=== PATIENT | female | born 1985 | race Caucasian/White ===

== ENCOUNTER 2020-12-01 15:47 | Emergency (ER) | payer SELFPAY ==
--- NOTE | ~2020-12-01 | CT_ITS ---
EXAMINATION: CT abdomen pelvis wo con DATE: 12/01/2020 17:07 INDICATION: Left upper quadrant abdominal pain. TECHNIQUE: Computed tomography (CT) of the abdomen and pelvis was performed without intravenous contr ast. Automated exposure control and iterative reconstruction technique were employed. The dose-length product was 441.56 mGy-cm. COMPARISON: CT pelvis 01/23/2012 FINDINGS: The visualized portions of the lung bases are clear without pneumonia or pleural effusion. The heart size is normal. No pericardial effusion. The liver, gallbladder, spleen, pancreas, adrenal glands, and kidneys are normal. There is no urolithiasis. There are no dilated loops of bowel. The ap pendix is normal. There are no pathologically enlarged lymph nodes. There is no free intraperitoneal fluid. The bones are unremarkable. IMPRESSION: 1. No etiology for the patient's symptoms. Reviewed, dictated and finalized at location A.
[2020-12-01 16:13] VITALS: BP 123/61; PULSE 94; RESP 20; TEMP 37.1; O2SAT 99
[2020-12-01] MEDS: ONDANSETRON INJ 4 MG/2 ML VIAL IV PUSH (16:35)
[2020-12-01] MEDS: KETOROLAC 30 MG/ML VIAL (*BKC) IV PUSH (16:35)
[2020-12-01 16:36] LABS: Add Urine Microscopic? YES; Appearance Urine Clear (Clear); Basophils Absolute Auto 0.06 K/mm3 (0.00-0.10); Basophils Percent Auto 0.6 % (0.0-1.0); Bilirubin Urine Negative (Negative); Blood Urine Negative (Negative); Color Urine Light Yellow (Yellow); Eosinophils Absolute Auto 0.15 K/mm3 (0.02-0.50); Eosinophils Percent Auto 1.5 % (1.0-6.0); Glucose Urine UA Negative (Negative); Hematocrit 39.4 % (35.0-49.0); Immature Granulocyte Absolute 0.04 K/mm3 (0.00-0.00); Immature Granulocyte Percent A 0.4 % (0.0-0.0); Ketones Urine Trace (Negative); Leukocyte Esterase Ur Negative (Negative); Lymphocytes Absolute Auto 2.79 K/mm3 (1.10-4.50); Lymphocytes Percent Auto 27.7 % (18.0-42.0); Mean Corpuscular Hemoglobin 30.6 pg (27.0-31.0); Mean Corpuscular Volume 92.7 fL (78.0-102.0); Monocytes Absolute Auto 0.59 K/mm3 (0.10-0.90); Monocytes Percent Auto 5.8 % (2.0-11.0); Neutrophils Absolute Auto 6.5 K/mm3 (1.7-7.2); Nitrate Urine Negative (Negative); Platelet Count Result 406 K/mm3 (150-420); Protein Urine Negative (Negative); Red Blood Count 4.25 M/mm3 (4.20-5.40); Red Cell Distribution Width 12.6 % (11.6-14.4); Urobilinogen Urine 0.2 mg/dL (0.2-1.0); White Blood Count 10.1 K/mm3 (4.8-10.8)
[2020-12-01] MEDS: SODIUM CHLORIDE 0.9% IV 1,000 ML 999 ML IV CONT (16:37)
[2020-12-01 16:45] LABS: RBC Urine 0-2 /hpf (0-2); WBC Urine 0-3 /hpf (0-3)
[2020-12-01 16:46] LABS: Bacteria Urine Trace /hpf; Squamous Epithelial Cell Urine Rare /hpf (Few)
[2020-12-01 16:47] LABS: Pregnancy On Board Control Positive; Urine Pregnancy Test Negative
[2020-12-01 16:51] LABS: Alanine Aminotransferase 18 U/L (14-59); Alkaline Phosphatase 49 U/L (46-116); Anion Gap 10 mmol/L (8-16); Aspartate Amino Transferase < 10 U/L (15-37); Bilirubin,Total 0.1 mg/dL (0.00-1.00); Blood Urea Nitrogen 18 mg/dL (7-18); Calcium 8.8 mg/dL (8.5-10.1); Carbon Dioxide 26 mmol/L (21-32); Chloride 108 mmol/L (98-108); Estimated CRCL calculation 82 ml/min; Estimated Glomerular Filt Rate > 60; Glucose 106 mg/dL (70-99); Lipase 178 U/L (73-393); Osmolality Calculated 299 mOsm/kg (285-295); Potassium 4.1 mmol/L (3.5-5.1); Sodium 144 mmol/L (136-145); Total Protein 7.2 g/dL (6.4-8.2)
--- NOTE | 2020-12-01 17:25 | ED.ABDPAIN ---
HPI - Abdominal Pain General Chief Complaint: Abdominal Pain Stated Complaint: stomach and back pain Source: patient Mode of arrival: ambulatory Limitations: no limitations History of Present Illness HPI narrative: this is 34-year-old female that presents with abdominal pain for last 2 days epigastric with some no radiation of her pain does have some chronic back pain with some nausea with no vomiting no dysuria no hematuria no diarrhea constipation no history of kidney are gallstones. The pain is rated about a 5/10 with some nausea and no vomiting. MD elicited complaint: abdominal pain Pertinent past history: none Onset (ago): day(s) Pain Consistency: intermittent Location: none Severity: moderate Quality: aching Radiation: epigastric Migration to: no migration Exacerbating factors: nothing Relieving factors: nothing Related Data Allergies Allergy/AdvReac Type Severity Reaction Status Date / Time No Known Allergies Allergy Mild Unverified 10/26/06 09:58 Review of Systems Review of Systems: All systems reviewed & are unremarkable except as noted in HPI and below PMFSH Past Medical History Medical History Patient denies medical problems Social History Social History Smoking status: Former smoker Alcohol intake: never Substance use: never Gender identity (if verbalized by the patient): Female Spiritual care concerns: No Exam Const: General: no acute distress and alert Orientation/consciousness: patient oriented x3 Limitations: altered mental status HENMT: Head: normal to inspection Eyes: Conjunctivae: conjunctivae normal Pupils: Equal, round and reactive pupils present Neck: Neck: normal visual inspection, no lymphadenopathy and no meningeal signs Chest: Chest palpation & inspection: normal inspection of the chest Resp: Effort & Inspection: normal respiratory effort Auscultation: clear to auscultation bilaterally Cardio: Rate: regular rate Rhythm: regular rhythm GI: GI Palp: Yes Soft to palpation and Yes Tenderness to palpation present (GI) : General: Yes no CVA tenderness Urinary Catheter: Urinary Catheter: patent and draining Skin: General skin exam: normal color Rashes: no rashes Neuro: General: patient oriented x3 and moves all extremities Extrem: General: normal to inspection and no pedal edema Psych: Mental Status: mental status grossly normal Course Course Emergency Course: pain has improved with IM Toradol, reviewed CT scan and labs with patient, advised to take medicine as prescribed and follow-up primary care physician. Vital Signs Vital signs: Vital Signs Temperature 37.1 C 12/01/20 16:13 Pulse Rate 94 12/01/20 16:13 Respiratory Rate 20 12/01/20 16:13 Blood Pressure 123/61 12/01/20 16:13 Pulse Oximetry 99 12/01/20 16:13 Temperature 37.1 C 12/01/20 16:13 Pulse Rate 94 12/01/20 16:13 Respiratory Rate 20 12/01/20 16:13 Blood Pressure 123/61 12/01/20 16:13 Pulse Oximetry 99 12/01/20 16:13 MDM - Abdominal Pain Lab Data Result diagrams: 12/01/20 16:25 12/01/20 16:25 Labs: Lab Results 12/01/20 12/01/20 12/01/20 Range/Units 16:25 16:25 16:25 WBC 10.1 (4.8-10.8) K/mm3 RBC 4.25 (4.20-5.40) M/mm3 Hgb 13.0 (12.0-15.0) g/dL Hct 39.4 (35.0-49.0) % MCV 92.7 (78.0-102.0) fL MCH 30.6 (27.0-31.0) pg MCHC 33.0 (32.0-36.0) g/dL RDW 12.6 (11.6-14.4) % Plt Count 406 (150-420) K/mm3 MPV 9.0 L (9.2-11.8) fl Immature Gran % (Auto) 0.4 H (0.0-0.0) % Neut % (Auto) 64.0 (50.0-70.0) % Lymph % (Auto) 27.7 (18.0-42.0) % [place] % (Auto) 5.8 (2.0-11.0) % Eos % (Auto) 1.5 (1.0-6.0) % Baso % (Auto) 0.6 (0.0-1.0) % Lymph # (Auto) 2.79 (1.10-4.50) K/mm3 [place] # (Auto) 0.59 (0.10-0.90) K/mm3 Eos # (Auto) 0.15 (0.02
[2020-12-01 17:33] LABS: Lactic Acid Reflex 0.9 mmol/L (0.4-2.0)
[2020-12-01 17:57] VITALS: BP 130/74; PULSE 87; RESP 20; TEMP 36.6; O2SAT 99
== END 2020-12-01 18:00 | disposition home or self-care (01) ==
PROVIDERS: Emergency Provider Emergency Medicine
DX: R10.13 Epigastric pain (principal)
CPT/HCPCS: 36415; 74176; 80053; 81001; 81025; 83605; 83690; 85025; 96361; 96374; 96375; 99283; 99284; J1885; J2405; J7030

== ENCOUNTER 2021-08-05 10:43 | Emergency (ER) | payer OTHER, SELFPAY ==
--- NOTE | ~2021-08-05 | CT_ITS ---
EXAMINATION: CT abdomen pelvis wo con DATE: 08/05/2021 11:56 INDICATION: Mid abdominal pain for 2 weeks TECHNIQUE: Computed tomography (CT) of the abdomen and pelvis was performed without intravenous contr ast. Automated exposure control and iterative reconstruction technique were employed. Exam dose: 319 .25 mGy-cm total exam DLP. COMPARISON: 12/01/2020 CT abdomen pelvis FINDINGS: The lung bases are clear. Normal heart size. No pericardial or pleural effusion. The liver, gallbladder, bile ducts, spleen, pancreas, pancreatic duct, and adrenal glands and kidneys are unremarkable. No urinary tract calculus or hydroureteronephrosis is detected. The urinary bladde r, uterus and adnexal areas are unremarkable. Normal caliber of the abdominal aorta. No intraperitoneal or retroperitoneal or pelvic mass lesion or adenopathy or ascites. Normal appendix. No bowel obstruction, bowel wall thickening, pneumatosis or intraperitoneal free air . Very small fat-containing umbilical hernia. Included skeletal structures are unremarkable. IMPRESSION: No significant abnormality Reviewed, dictated and finalized at Location A. Reviewed, dictated and finalized at location A. IMPRESSION: No significant abnormality
[2021-08-05 10:55] VITALS: BP 123/87; PULSE 79; RESP 16; TEMP 36.5; O2SAT 99
[2021-08-05] MEDS: MORPHINE SULFATE (*CRX) 2 MG/ML INJ IV PUSH (11:18)
[2021-08-05] MEDS: SODIUM CHLORIDE 0.9% IV 1,000 ML 999 ML IV CONT (11:18)
--- NOTE | 2021-08-05 11:18 | ED.ABDPAIN ---
HPI - Abdominal Pain General Chief Complaint: Vaginal Bleeding Stated Complaint: abd pain, back pain, vaginal bleeding, dizziness Source: patient Mode of arrival: ambulatory Limitations: no limitations History of Present Illness HPI narrative: this is a 35-year-old female that presents with some lower abdominal crampy abdominal pain with for the past 10 days has been having usually have a menstrual periods currently on implantable control as crampy abdominal pain with flank pain with no dysuria no fever chills no nausea vomiting no diarrhea constipation. MD elicited complaint: abdominal pain and flank pain Pertinent past history: other ( heavy uterine bleeding) Onset (ago): day(s) Pain Consistency: intermittent Severity: moderate Quality: cramping Related Data Home Medications Medication Instructions Recorded Confirmed fluoxetine 40 mg PO DAILY 08/05/21 08/05/21 meloxicam 15 mg PO DAILY 08/05/21 08/05/21 Allergies Allergy/AdvReac Type Severity Reaction Status Date / Time No Known Allergies Allergy Mild Unverified 08/05/21 10:59 Review of Systems Review of Systems: All systems reviewed & are unremarkable except as noted in HPI and below PMFSH Past Medical History Medical History Patient denies medical problems Social History Social History Smoking status: Former smoker Alcohol intake: never Substance use: never Gender identity (if verbalized by the patient): Female Spiritual care concerns: No Exam Const: General: no acute distress and alert Orientation/consciousness: patient oriented x3 HENMT: Head: normal to inspection Eyes: Conjunctivae: conjunctivae normal Pupils: Equal, round and reactive pupils present Neck: Neck: normal visual inspection Chest: Chest palpation & inspection: normal inspection of the chest Resp: Effort & Inspection: normal respiratory effort Auscultation: clear to auscultation bilaterally Cardio: Rate: regular rate Rhythm: regular rhythm GI: GI Palp: Yes Soft to palpation and Yes Tenderness to palpation present (GI) ( Suprapubic area and bilateral flanks) : General: Yes CVA tenderness Female genitals images: 1. external pelvic exam did not show any clots are no current bleeding, there was a small scant amount of blood. Urinary Catheter: Urinary Catheter: patent and draining and urine red Back/Spine/Pelvis: Back: CVA tenderness Skin: General skin exam: normal color Rashes: no rashes Neuro: General: patient oriented x3 and moves all extremities Extrem: General: normal to inspection and no pedal edema Psych: Mental Status: mental status grossly normal Affect: normal affect Course Course Emergency Course: IV started on patient, patient having abdominal pain and given 2mg IV morphine, CT scan the abdomen pelvis without contrast, patient had blood work performed and reviewed. Vital Signs Vital signs: Vital Signs Temperature 36.5 C 08/05/21 10:55 Pulse Rate 79 08/05/21 10:55 Respiratory Rate 16 08/05/21 10:55 Blood Pressure 123/87 08/05/21 10:55 Pulse Oximetry 99 08/05/21 10:55 Temperature 36.5 C 08/05/21 10:55 Pulse Rate 79 08/05/21 10:55 Respiratory Rate 16 08/05/21 10:55 Blood Pressure 123/87 08/05/21 10:55 Pulse Oximetry 99 08/05/21 10:55 Critical Care Time Critical Care Time Critical Care Time: No Discharge Plan Discharge Clinical Impression: Dysfunctional uterine bleeding Patient Disposition: Home, Self-Care Condition: Stable Instructions: Antibiotic Form, Abnormal (Dysfunctional) Uterine Bleeding (ED) Additional Instructions: Take medicine as prescribed and follow-up with primary care physician/ licensed life and health agent as soon as possible for further evaluation and treatment. Prescriptions: New medroxyprogesterone 2.5 mg tablet 2.5 mg PO DAILY Qty: 5 RF: 0
[2021-08-05 11:30] LABS: Basophils Absolute Auto 0.05 K/mm3 (0.00-0.10); Basophils Percent Auto 0.4 % (0.0-1.0); Eosinophils Absolute Auto 0.04 K/mm3 (0.02-0.50); Eosinophils Percent Auto 0.3 % (1.0-6.0); Hemoglobin 13.2 g/dL (12.0-15.0); Immature Granulocyte Absolute 0.05 K/mm3 (0.00-0.00); Immature Granulocyte Percent A 0.4 % (0.0-0.0); Lymphocytes Absolute Auto 1.44 K/mm3 (1.10-4.50); Mean Corpuscular Volume 93.9 fL (78.0-102.0); Mean Platelet Volume 8.7 fl (9.2-11.8); Monocytes Absolute Auto 0.54 K/mm3 (0.10-0.90); Monocytes Percent Auto 4.1 % (2.0-11.0); Neutrophils Percent Auto 83.8 % (50.0-70.0); Platelet Count Result 404 K/mm3 (150-420); Red Blood Count 4.26 M/mm3 (4.20-5.40); Red Cell Distribution Width 13.3 % (11.6-14.4); White Blood Count 13.1 K/mm3 (4.8-10.8)
[2021-08-05 11:30] LABS: Appearance Urine Slightly Cloudy (Clear); Bilirubin Urine Negative (Negative); Blood Urine 3+ (Negative); Glucose Urine UA Negative (Negative); Ketones Urine Negative (Negative); Leukocyte Esterase Ur Negative (Negative); Nitrate Urine Negative (Negative); Protein Urine 1+ (Negative); Specific Grav Ur 1.015 (1.010-1.020); Urobilinogen Urine 0.2 mg/dL (0.2-1.0); pH Urine 8.5 (5.0-8.0)
[2021-08-05 11:36] LABS: Add Urine Microscopic? YES; Bacteria Urine Trace /hpf; Color Urine Light Red (Yellow); RBC Urine 21-50 /hpf (0-2); Squamous Epithelial Cell Urine Few /hpf (Few); WBC Urine 0-3 /hpf (0-3)
[2021-08-05 11:37] LABS: Pregnancy On Board Control Positive; Urine Pregnancy Test Negative
[2021-08-05 11:44] LABS: Alanine Aminotransferase 12 U/L (14-59); Albumin Level 3.7 g/dL (3.4-5.0); Alkaline Phosphatase 45 U/L (46-116); Anion Gap 8 mmol/L (8-16); Aspartate Amino Transferase 14 U/L (15-37); Bilirubin,Total 0.4 mg/dL (0.00-1.00); Blood Urea Nitrogen 14 mg/dL (7-18); Calcium 8.6 mg/dL (8.5-10.1); Carbon Dioxide 23 mmol/L (21-32); Chloride 108 mmol/L (98-108); Estimated Glomerular Filt Rate > 60; Glucose 93 mg/dL (70-99); Osmolality Calculated 288 mOsm/kg (285-295); Potassium 3.6 mmol/L (3.5-5.1); Sodium 139 mmol/L (136-145); Total Protein 6.9 g/dL (6.4-8.2)
[2021-08-05 11:45] LABS: Partial Thromboplastin Time 28.1 SEC (23.90-30.70)
[2021-08-05 12:19] VITALS: BP 119/64; PULSE 63; RESP 16; TEMP 36.9; O2SAT 100
== END 2021-08-05 12:24 | disposition home or self-care (01) ==
PROVIDERS: Emergency Provider Emergency Medicine; PCP Family Medicine
DX: N93.8 Other specified abnormal uterine and vaginal bleeding (principal)
CPT/HCPCS: 36415; 74176; 80053; 81001; 81025; 85025; 85610; 85730; 96361; 96374; 99284; J2270; J7030

== ENCOUNTER 2021-10-14 09:23 | Outpatient (CLI) | payer OTHER, SELFPAY ==
--- NOTE | ~2021-10-14 | MR_ITS ---
EXAMINATION: MR thoracic spine wo con DATE: 10/14/2021 10:39 INDICATION: Mid to upper back pain. TECHNIQUE: Magnetic resonance imaging (MRI) of the thoracic spine was performed without intravenous c ontrast. Sagittal localizer T1-weighted FSE of the cervical spine was obtained. Thoracic spine sequen mary included sagittal T2-weighted FSE, sagittal T1-weighted FSE, sagittal T2-weighted FS FSE, and axi al T2-weighted FSE. COMPARISON: None FINDINGS: There is 5 degrees dextrocurvature of thoracic spine. There are Schmorl's nodes at T10-T11 and T11-T12. There is mildly decreased disc height at T2-T3. There is multilevel facet joint osteoart hritis, moderate to severe bilaterally from T2-T3 through T4-T5. On the left, there is mild neural fo raminal stenosis at T2-T3. The discs do not extend beyond the endplate margins. The spinal cord signa l intensity is normal. The conus medullaris is at T12-L1. IMPRESSION: 1. Mild thoracic spondylosis. Reviewed, dictated and finalized at location A.
--- NOTE | ~2021-10-14 | MR_ITS ---
EXAMINATION: MR cervical spine wo con DATE: 10/14/2021 10:39 INDICATION: Mid to upper back pain. TECHNIQUE: Magnetic resonance imaging (MRI) of the cervical spine was performed without intravenous c ontrast. Sequences included sagittal T2-weighted FSE, sagittal T2-weighted FS FSE, sagittal T1-weight ed FSE, axial MERGE, and axial T2-weighted FSE. COMPARISON: None FINDINGS: There is kyphosis of cervical spine. There is 6 degrees dextrocurvature of cervicothoracic spine. Vertebral body heights are normal. There is mildly decreased disc height at C4-C5, C5-C6, and C6-C7. The spinal cord signal intensity is normal. The following disc levels are specifically discuss ed: C2-C3: The disc does not extend beyond the endplate margin. There is no uncovertebral joint osteoarth ritis. There is mild bilateral facet joint osteoarthritis. There is no neural foraminal stenosis. The re is no central canal stenosis. C3-C4: The disc does not extend beyond the endplate margin. There is no uncovertebral joint osteoarth ritis. There is mild left facet joint osteoarthritis. There is no neural foraminal stenosis. There is no central canal stenosis. C4-C5: The disc is bulging. There is mild left uncovertebral joint osteoarthritis. There is mild left facet joint osteoarthritis. There is no neural foraminal stenosis. There is mild central canal steno sis with ventral indentation of the spinal cord. C5-C6: The disc is bulging. There is moderate right and mild left uncovertebral joint osteoarthritis. There is mild left facet joint osteoarthritis. There is mild right neural foraminal stenosis. There is mild central canal stenosis. C6-C7: The disc is bulging. There is mild bilateral uncovertebral joint osteoarthritis. There is no f acet joint osteoarthritis. There is mild bilateral neural foraminal stenosis. There is mild central c anal stenosis. C7-T1: The disc does not extend beyond the endplate margin. There is no uncovertebral joint osteoarth ritis. There is moderate bilateral facet joint osteoarthritis. There is mild left neural foraminal st enosis. There is no central canal stenosis. IMPRESSION: 1. Mild cervical spondylosis. Reviewed, dictated and finalized at location A.
== END 2021-10-14 09:24 | disposition home or self-care (01) ==
LOC: CHSIMG 09:25
PROVIDERS: PCP Family Medicine; Visit Provider Family Medicine
DX: M54.9 Dorsalgia, unspecified (principal)
CPT/HCPCS: 72141; 72146

== ENCOUNTER 2023-04-28 10:02 | Emergency (ER) | payer OTHER, SELFPAY ==
[2023-04-28 10:06] VITALS: BP 90/71; PULSE 84; RESP 19; TEMP 36.7; O2SAT 100
[2023-04-28 10:12] LABS: Appearance Urine Clear (Clear); Bilirubin Urine Negative (Negative); Blood Urine 1+ (Negative); Glucose Urine UA Trace (Negative); Ketones Urine 1+ (Negative); Leukocyte Esterase Ur 1+ LEU/UL (Negative); Nitrate Urine Positive (Negative); Protein Urine 1+ (Negative)
--- NOTE | 2023-04-28 10:12 | PC.NURSE ---
Urine obtained and taken to lab, patient reports taking azo for the past few days to help with pain.
[2023-04-28 10:23] LABS: Add Urine Microscopic? YES; Bacteria Urine 1+ /hpf; Color Urine Orange (Yellow); Squamous Epithelial Cell Urine Occasional /hpf (Few); WBC Urine 16-20 /hpf (0-3)
[2023-04-28 10:28] LABS: Pregnancy On Board Control Positive; Urine Pregnancy Test Negative
--- NOTE | 2023-04-28 10:36 | ED.GENADULT ---
HPI - General Adult General Chief complaint: Urogenital-Female Stated complaint: Urinary problems Time Seen by Provider: 04/28/23 10:11 History of Present Illness HPI narrative: This is a 37-year-old female presenting with urinary symptoms. Symptoms been ongoing for 1 week include dysuria. She has also had some suprapubic tenderness and 1 episode nausea vomiting yesterday. No fevers at home. No chest pain difficulty breathing vaginal discharge irritation. No concern for STDs. Related Data Home Medications Medication Instructions Recorded Confirmed duloxetine 30 mg capsule,delayed 90 mg PO DAILY 04/28/23 04/28/23 release Allergies Allergy/AdvReac Type Severity Reaction Status Date / Time No Known Allergies Allergy Mild Unverified 04/28/23 10:08 [facility] Past Medical History Medical History Patient denies medical problems Social History Social History Smoking status: Former smoker Alcohol intake: never Substance use: never Living arrangements: with family Gender identity (if verbalized by the patient): Female Spiritual care concerns: No Exam Narrative: APPEARANCE: No apparent distress. Head: atraumatic. EYES: EOMI, NOSE: Atraumatic NECK: Trachea midline RESPIRATORY: No increased rate of breathing CARDIOVASCULAR: RRR, ABDOMINAL: Soft nontender no guarding or rebound. Mild tenderness the suprapubic area. No CVA tenderness bilaterally. MUSCULOSKELETAl: No obvious deformities NEURO: Alert. Moving 4/4 extremities SKIN:: Warm, dry. Normal color PSYCHIATRIC: Normal affect Course Vital Signs Vital signs: Vital Signs Temperature 98.0 F 04/28/23 10:06 Pulse Rate 84 04/28/23 10:06 Respiratory Rate 19 04/28/23 10:06 Blood Pressure 90/71 L 04/28/23 10:06 Pulse Oximetry 100 04/28/23 10:06 Oxygen Delivery Room Air 04/28/23 10:06 Temperature 98.0 F 04/28/23 10:06 Pulse Rate 84 04/28/23 10:06 Respiratory Rate 19 04/28/23 10:06 Blood Pressure 90/71 L 04/28/23 10:06 Pulse Oximetry 100 04/28/23 10:06 Oxygen Delivery Room Air 04/28/23 10:06 Medical Decision Making MDM Narrative Medical decision making narrative: -Course: 37-year-old female presenting with 1 week urinary symptoms. Urinalysis was indicative infection. no evidence of pyelonephritis. Given Keflex and Zofran emergency department. 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 -Interventions: Keflex, Zofran -Shared decision making / Disposition: discharged -RX Keflex 100 mg b.i.d. x5 days, Zofran 4 mg ODT Vital Signs Vital Signs: Vital Signs Temperature 98.0 F 04/28/23 10:06 Pulse Rate 84 04/28/23 10:06 Respiratory Rate 19 04/28/23 10:06 Blood Pressure 90/71 L 04/28/23 10:06 Pulse Oximetry 100 04/28/23 10:06 Oxygen Delivery Room Air 04/28/23 10:06 Temperature 98.0 F 04/28/23 10:06 Pulse Rate 84 04/28/23 10:06 Respiratory Rate 19 04/28/23 10:06 Blood Pressure 90/71 L 04/28/23 10:06 Pulse Oximetry 100 04/28/23 10:06 Oxygen Delivery Room Air 04/28/23 10:06 Lab Data Labs: Lab Results 04/28/23 04/28/23 Range/Units 10:07 10:09 Urine Color [place] A (Yellow) Urine Appearance Clear (Clear) Urine pH 7.0 (5.0-8.0) Ur Specific [place] 1.020 (1.010-1.020) Urine Protein 1+ H (Negative) Urine Glucose (UA) Trace H (Negative) Urine Ketones 1+ H (Negative) Ur Blood (Man) 1+ H (Negative) Urine Nitrate Positive H (Negative) Urine Bilirubin Negative (Negative) Urine Urobilinogen 2.0 H (0.2-1.0) mg/dL Leukocyte Esterase Rfl 1+ H (Negative) JOHANA/UL Urine RBC 3-5 H (0-2) /h
[2023-04-28] MEDS: ONDANSETRON HCL ODT 4 MG TABLET PO (10:42)
[2023-04-28] MEDS: CEPHALEXIN 500 MG CAPSULE PO (10:42)
[2023-04-28 10:47] VITALS: BP 90/71; PULSE 84; RESP 19; TEMP 36.6; O2SAT 100
--- NOTE | 2023-05-01 18:10 | PC.NURSE ---
05/01/23 MESSAGE LEFT FOR PT TO CALL BACK FOR PT TO FOLLOW UP WITH HER PRIMARY AFTER FINISHING ANTIBIOTIC
--- NOTE | 2023-05-02 08:37 | PC.NURSE ---
05/02/23 was able to reach pt today and discussed finishing the antibiotic and then following up with her primary doctor to have repeat UA
== END 2023-04-28 10:47 | disposition home or self-care (01) ==
PROVIDERS: Emergency Provider Emergency Medicine
DX: N39.0 Urinary tract infection, site not specified (principal); Z79.899 Other long term (current) drug therapy; Z87.891 Personal history of nicotine dependence
CPT/HCPCS: 81001; 81025; 87077; 87086; 87088; 87186; 99283; A9270

== ENCOUNTER 2023-08-12 10:24 | Outpatient (CLI) | payer OTHER, SELFPAY | END 2023-08-12 10:25 | disposition home or self-care (01) | PROVIDERS: Visit Provider Obstetrics & Gynecology | DX: Z01.818 Encounter for other preprocedural examination (principal); N92.0 Excessive and frequent menstruation with regular cycle | CPT/HCPCS: 36415; 86850; 86900; 86901 ==

== ENCOUNTER 2023-08-14 01:00 | Day surgery (SDC) | payer OTHER, SELFPAY ==
[2023-08-06 16:13] VITALS: BMI 22.3
--- NOTE | 2023-08-06 18:14 | PC.NURSE ---
Report to the Outpatient Waiting Room, entrance under the green pavilion located off [facility], at 0800 on 08-14-23. Planned Procedure Time: 1000. Time changes happen often and if your time is changed the preop area will call you the afternoon before. - You and your visitor will be asked to self-screen and do not enter if you have any COVID symptoms. - A mask is optional within the hospital at this time. Patients may have clear liquids (water, carbonated beverages, clear teas, apple juice) until 3 hours prior to surgery with a maximum of 20 ounces. 0700 - No food from midnight until time of surgery - Infants may have breast milk until 4 hours before surgery, infant formula 6 hours prior to surgery. - Children will be allowed to drink immediately following surgery. If applicable, please bring a bottle or sippy cup to assist with drinking. Juice, water, soda, and popsicles are readily available. For infants on formula, please bring formula the day of surgery. Pacifiers are allowed. Take the following medications with a SIP of water the morning of surgery: Duloxetine DO NOT STOP ANY OF YOUR OTHER PRESCRIPTION MEDICATIONS PRIOR TO SURGERY ?EXCEPT THE FOLLOWING Medications to discontinue per physician: vitamins and supplements; ibuprofen Date to take last dose: 08-11-23; per Dr. Sahu Please no make-up, nail mohawk, hairspray, perfume, deodorant, or body powder the day of surgery. No jewelry (including any body piercings) or valuables the day of surgery, leave them at home. Please take a shower or bath the night before, or the morning of, surgery with an antibacterial soap. Wear comfortable, loose fitting clothing. Children are encouraged to wear pajamas. - Jewelry must be removed prior to entering the operating room. Rings and piercings that are not removed may be cut off. - The hospital will not accept responsibility for valuables. - Please leave all valuables, including medications, at home the day of surgery. If you are going home after surgery, a licensed [employer] driver must drive you home. - NO public transportation without another adult if you receive anesthesia. - We recommend that an adult stay with you for 24 hours following discharge. - We also recommend that you do not drive, make important decision, drink alcoholic beverages, or take any drugs that were not prescribed by your health care provider for at least 24 hours after your discharge time. For Pediatric surgeries, we recommend two adults accompany the child home. Follow any additional instructions given to you from your surgeon. If you or anyone in your household have experienced Covid symptoms in the past week, please notify your surgeon or the nurse liaison at the phone number below for possible testing. Telephone instructions given to Esther Richey and asked if any additional questions and then verbalized understanding. Patient advised to call surgeon office or pre surgery nurse liaison [phone] if any additional questions.
[2023-08-14] VITALS (10 sets, daily range): BP systolic 95–111; BP diastolic 52–63; PULSE 57–83; RESP 16–26; TEMP 36.2–37; O2SAT 96–100
--- NOTE | 2023-08-14 08:45 | WPDANESEPPF ---
Anes - Initial Pre Proc Eval Procedure: Operation Date: 08/14/23 10:00 Proposed Procedures p Total Laparoscopic Hysterectomy with Bilateral Salpingo-oophorectomy - Benjamin Sahu MD Date/Time: 08/14/23 08:45 Surgeon: Benjamin Sahu MD Pre Op Diagnosis: Menorrhagia Patient Data Age: 37 Gender: F Height: 1.63 m Weight: 58.7 kg Last Vital Signs Temp 97.6 F 08/14/23 08:13 Pulse 71 08/14/23 08:13 Resp 16 08/14/23 08:13 BP 108/59 L 08/14/23 08:13 Pulse Ox 100 08/14/23 08:13 O2 Del Method Room Air 08/14/23 08:13 Allergies Allergy/AdvReac Type Severity Reaction Status Date / Time No Known Allergies Allergy Mild Verified 08/14/23 08:24 Home Medications Medication Instructions Recorded Confirmed Type duloxetine 30 mg capsule,delayed 90 mg PO DAILY 04/28/23 08/14/23 History release ibuprofen 800 mg tablet 800 mg PO TID PRN pain 7 days #21 04/28/23 08/14/23 Rx tabs ondansetron 4 mg disintegrating 4 mg PO Q8H PRN nausea and 04/28/23 08/14/23 Rx tablet vomiting #14 tabs ascorbic acid (vitamin C) 2,000 mg 2,000 mg PO DAILY 08/06/23 08/14/23 History tablet,extended release vitamin B complex 1 tablet PO DAILY 08/06/23 08/14/23 History Patient hx anesthesia problems: none Family hx anesthesia problems: none Results Review: All pre-operative results and documents have been reviewed as part of the pre-operative evaluation. [facility] Past Medical History Medical History Patient denies medical problems Social History Social History Smoking status: Never smoker Second hand tobacco smoke exposure: No Alcohol intake: current Alcohol use details: very rarely Substance use: current Substance use type: marijuana Other substance usage details: daily use Living arrangements: with family Gender identity (if verbalized by the patient): Female Spiritual care concerns: No Anes - Eval Final PreProcedure Day of Procedure 08/14/23 08:45 Patient weight: normal Heart: regular rate and rhythm Lungs: clear to auscultation Airway: Mallampati scale class II Neurological: alert and oriented Last oral intake: >/= 8 hours ASA classification: III Emergent: no Anesthetic plan: proceed Anesthesia type and monitoring: general ETT and standard monitoring Results Review: All pre-operative results and documents have been reviewed as part of the pre-operative evaluation. Informed Consent: The patient's anesthetic plan and its attendant risks and benefits were discussed with the patient/family/POA. Questions were solicited and answers provided to the satisfaction of the patient/family/POA.
[2023-08-14] MEDS: LACTATED RINGERS 1,000 ML 30 ML IV CONT ×2 (08:50→11:26)
[2023-08-14] MEDS: ACETAMINOPHEN 500 MG TABLET 1000 MG PO (08:55)
[2023-08-14] MEDS: KETOROLAC 15 MG/ML VIAL (*BKC) IV PUSH (08:55)
--- NOTE | 2023-08-14 09:03 | PM.IMHP ---
H&P: HPI History of Present Illness Date/Time: 08/14/23 09:03 Chief Complaint: Menorrhagia Narrative: 37-year-old female with severe menorrhagia. We have agreed to perform total laparoscopic hysterectomy and bilateral salpingo-oophorectomy. She understands the procedure. Has been explained to her in detail. She understands that there is risk. She has understands that injuries may occur that result in hospitalization, more surgery, and severe illness. She understands risk of hemorrhage and infection. She denies any nausea, vomiting, fever, chills. She denies any chest pain shortness of breath. Review of Systems Review of Systems: All systems reviewed & are unremarkable except as noted in HPI and below Constitutional: Constitutional: Denies chills, Denies fatigue, Denies fever(s) and Denies weakness Eyes: Eyes: Denies blurry vision, Denies change in vision, Denies loss of peripheral vision, Denies loss of vision, Denies other visual disturbances and Denies eye pain ENT: Denies vertigo, Denies dizziness, Denies hearing loss, Denies mouth pain, Denies nasal obstruction, Denies neck mass and Denies neck pain Cardiovascular: Cardiovascular: Denies chest pain, Denies diaphoresis, Denies syncope, Denies leg edema and Denies dyspnea Respiratory: Respiratory: Denies chest congestion, Denies cough, Denies hemoptysis, Denies dyspnea and Denies wheezing Gastrointestinal: Gastrointestinal: Denies abdominal pain, Denies constipation, Denies diarrhea, Denies nausea and Denies vomiting Genitourinary: Genitourinary: Denies hematuria, Denies change in libido, Denies nocturia, Denies genital lesions, Denies flank pain and Denies urinary urgency Musculoskeletal: Musculoskeletal: Denies abnormal gait, Denies back pain, Denies myalgias, Denies arthralgias, Denies joint swelling, Denies muscle weakness and Denies neck pain Integumentary/Breasts: Skin/Breast: Denies swelling, Denies breast pain, Denies breast mass, Denies dry skin, Denies nipple discharge, Denies unusual bruising and Denies jaundice Neurologic: Denies Neuro-related abnormal movements, Denies Abnormal speech present, Denies abnormal gait, Denies behavioral changes, Denies confusion, Denies vertigo, Denies dizziness, Denies syncope, Denies loss of vision, Denies memory loss, Denies convulsions and Denies weakness Psychiatric: Psychiatric: Denies abnormal sleep pattern, Denies behavioral changes, Denies change in libido, Denies confusion, Denies depression, Denies anhedonia and Denies memory loss Endocrine: Endocrine: Reports no additional endocrine complaints, Denies change in libido and Denies fatigue Hematologic/Lymphatic: Hematologic/Lymphatic: Reports no additional hematologic/lymphatic complaints Allergic/Immunologic: Allergic/Immunologic: Reports no additional allergic/immunologic complaints and Denies wheezing PMFSH Past Medical History Medical History Patient denies medical problems Social History Social History Smoking status: Never smoker Second hand tobacco smoke exposure: No Alcohol intake: current Alcohol use details: very rarely Substance use: current Substance use type: marijuana Other substance usage details: daily use Living arrangements: with family Gender identity (if verbalized by the patient): Female Spiritual care concerns: No Meds Home Medications and Allergies Home Medications Medication Instructions Recorded Confirmed Type duloxetine 30 mg capsule,delayed 90 mg PO DAILY 04/28/23 08/14/23 History release ibuprofen 800 mg tablet 800 mg PO TID PRN pain 7 days #21 04/28/23 08/14/23 Rx tabs ondansetron 4 mg disintegrating 4 mg PO Q8H PRN nausea and 04/28/23 08/14/23 Rx tablet vomiting #14 tabs ascorbic acid (vitamin C) 2,000 mg 2,000 mg PO DAILY 08/06/23 08/14/23 History tablet,extended release vitamin B com
--- NOTE | 2023-08-14 09:05 | WPDHPUPDATE1 ---
History and Physical Update Update Date/Time: 08/14/23 09:05 History and Physical has been reviewed, including an updated exam of the patient. There are NO changes in the patient's condition. Risks, benefits, and alternatives have been discussed and questions answered. Patient agrees to proceed with procedure.
[2023-08-14] MEDS: ceFAZolin 2 GM/D5W 50 ML 2 GM/50 ML BAG IVPB (10:10)
--- NOTE | 2023-08-14 11:25 | W.PM.PROC2 ---
Procedure Note - Detailed Date of Procedure 08/14/23 Pre-op Diagnosis Menorrhagia Post-op Diagnosis Same Procedure Performed Total laparoscopic hysterectomy and bilateral salpingo-oophorectomy. Surgeon Benjamin Sahu MD Anesthesia General Indications heavy vaginal bleeding Findings Moderately enlarged firm uterus, normal-appearing tubes and ovaries. Description of Procedure This patient was taken to the operating room. She was prepped and draped in the dorsal lithotomy position after induction of general anesthesia. The uterine manipulator and Marj cup were placed. This was done with a speculum and tenaculum. The speculum was placed. The cervix was grasped with a tenaculum. The stay sutures were placed at 3 and 9:00 a.m.. The stay sutures of 0 Vicryl were brought through the appropriately sized Marj cup. The tip of the ALICIA manipulator was placed in the intrauterine cavity. The cup was slid into place around the cervix and into the fornices. It was locked into place. The sutures were then wrapped around the handle and tied under tension. A 5 mm skin incision was made in the left upper quadrant the abdomen. A 5 mm trocar was inserted into the intrauterine cavity under direct visualization of the scope. Pneumoperitoneum was achieved. A left lower quadrant 11 mm incision was made with scalpel. An 11 mm trocar was inserted into the anterior abdominal cavity under direct visualization the scope. A 5 mm infraumbilical incision was made with a scalpel and a 5 mm trocar was inserted the intra-abdominal cavity under direct visualization of the scope. Bilateral ureteral lysis was performed. This was done from the pelvic brim down to the uterine artery. This was done with careful dissection using sharp and blunt dissection. The infundibulopelvic ligaments were isolated after identification of the ureters bilaterally. These infundibulopelvic ligaments were cauterized and transected with LigaSure cautery. The para ovarian tissue was cauterized and transected with LigaSure cautery bilaterally. Moving around the ovary into the broad ligament the tissue was cauterized transected with LigaSure cautery. The round ligaments were cauterized transected with LigaSure cautery this was all done in a bilateral fashion. In a stepwise fashion along the lateral aspects of the uterus the round ligament and broad ligaments were cauterized transected down to the level of the uterine arteries. A bladder flap was created in the bladder was moved distally to the end of the cervix and over the Marj cup. The bilateral uterine arteries were cauterized and transected. Colpotomy was then performed. In a circumferential fashion the vagina was transected using unipolar cautery. The incision was made down on the Marj cup. The uterus, cervix, fallopian tubes and ovaries were taken out through the vagina. A pneumo occluder was placed in the vagina. The vaginal cuff was closed with a 0 V lock suture in a running fashion. The pelvis was irrigated with copious amounts antibiotic irrigation. The ureters were again examined and found to be intact and flowing freely under the uterine arteries into the bladder. Cystoscopy was performed. The cystoscope was inserted in the ureteral orifices were examined. methylene blue had been previously given was seen to egress from both ureteral orifices. The bladder was intact . The cystoscope was withdrawn. The vagina was irrigated with Betadine solution after removal of the Pneumo occluder. The patient was taken to recovery room. She was stable condition. Sponge lap and needle counts were correct x2. Drains Yes Packing No Pathology Yes Complications No immediate complications Condition Stable Disposition Floor
[2023-08-14] MEDS: fentaNYL CITRATE INJ (*CRX) 100 MCG/2 ML VIAL 25 MCG IV PUSH ×7 (11:32→12:06)
[2023-08-14] MEDS: KETOROLAC 30 MG/ML VIAL (*BKC) IV PUSH ×2 (13:13→20:23)
[2023-08-14] MEDS: DEXTROSE 5%/0.45% SOD CHL 1,000 ML 125 ML IV CONT ×2 (13:14→21:14)
[2023-08-14] MEDS: HYDROcodone/acetaminophen (*CRX) 10-325 MG TABLET 1 TAB PO ×3 (13:14→23:22)
--- NOTE | 2023-08-14 16:00 | PC.NURSE ---
PT introductions made and plan of care discussed per post op lan analyst surgery, pain management, daily care activities. PT and significant other both recipients of such instructions and no barriers to learning identified at this time. PT received such instructions per one to one discussion and demonstrations. PT verbalized understanding of such care.
[2023-08-14] MEDS: SIMETHICONE 80 MG TAB.CHEW PO (17:15)
[2023-08-14] MEDS: ESTRADIOL 7 DAY 0.05 MG PATCH TRANSDERM (17:15)
[2023-08-15] MEDS: KETOROLAC 30 MG/ML VIAL (*BKC) IV PUSH (02:30)
[2023-08-15] MEDS: IBUPROFEN 600 MG TABLET PO (08:01)
[2023-08-15] MEDS: HYDROcodone/acetaminophen (*CRX) 10-325 MG TABLET 1 TAB PO ×2 (08:01→12:43)
[2023-08-15] MEDS: ASCORBIC ACID 500 MG TABLET 2000 MG PO (08:03)
[2023-08-15] MEDS: VITAMIN B COMPLEX CAPSULE 1 CAP PO (08:03)
[2023-08-15] MEDS: DULoxetine HCL 30 MG CAPSULE.DR 90 MG PO (08:04)
[2023-08-15] MEDS: SIMETHICONE 80 MG TAB.CHEW PO ×2 (08:04→12:44)
[2023-08-15 08:45] VITALS: BP 92/46; PULSE 68; RESP 16; TEMP 37.2; O2SAT 98
--- NOTE | 2023-08-15 12:37 | WPDANESPN ---
Anes - Prog Note Post-Op Date/Time: 08/15/23 12:37 Cardiovascular status: normal Respiratory status: normal Airway patency: baseline Mental status: baseline Post-Op hydration status: normal Vital Signs: Last Vital Signs Temp 99 F 08/15/23 08:45 Pulse 68 08/15/23 08:45 Resp 16 08/15/23 08:45 BP 92/46 L 08/15/23 08:45 Pulse Ox 98 08/15/23 08:45 O2 Del Method Room Air 08/14/23 17:00 O2 Flow Rate 10 08/14/23 12:00 Pain Score (VAS): 0/10 I/O: Intake & Output 08/14/23 08/15/23 08/15/23 23:59 07:59 15:59 Intake Total 2240 Output Total 1000 1400 Balance 1240 -1400 Post-procedural complaints: none Patient Feedback: Patient satisfied with anesthetic care.
--- NOTE | 2023-08-15 12:59 | PM.GYNPNOP ---
PERIODONTAL ASSISTANT - A/P Postoperative Procedures: Procedures Operation Date: 08/14/23 10:00 Actual Procedure Side Surgeon p Total Laparoscopic Hysterectomy with Bilateral Salpingo-oophorectomy Deonte Sahu MD Postoperative day: 1 Postoperative status: doing well Postoperative plan: see orders Time Spent With Patient Time: Total time spent is greater than 50% in coordination of care (as documented) at patient's floor/unit and/or counseling patient: Time with patient: less than 15 minutes PERIODONTAL ASSISTANT- PN:Subj Post-Op Subjective Date/time seen: 08/15/23 12:59 Subjective: patient reports feeling better, patient has no complaints and pain is well controlled Exam Const: General: healthy appearing, comfortable and no acute distress Resp: Auscultation: clear to auscultation bilaterally, no rales, no rhonchi and no wheezes Cardio: Rate: regular rate Heart sounds: no click, no murmurs and no rubs GI: Inspection: non-distended Auscultation: normal bowel sounds Extrem: General: normal to inspection, no pedal edema and no calf tenderness PERIODONTAL ASSISTANT - PN: Obj Data Vital Signs Vital Signs: Vital Signs - 24 hr 08/14/23 17:00 08/14/23 17:00 08/14/23 17:00 Temperature 97.6 F 97.6 F Pulse Rate 64 64 64 Respiratory Rate 18 18 18 Blood Pressure 104/52 L 104/52 L Pulse Oximetry 100 100 100 Oxygen Delivery Room Air Room Air 08/14/23 21:00 08/15/23 08:45 Temperature 98.6 F 99 F Pulse Rate 57 L 68 Respiratory Rate 18 16 Blood Pressure 106/60 92/46 L Pulse Oximetry 100 98 Oxygen Delivery Intake/Output Intake/Output: Intake & Output 08/12/23 08/13/23 08/14/23 08/15/23 23:59 23:59 23:59 23:59 Intake Total 3540 Output Total 1050 1400 Balance 2490 -1400 Meds/Results Medications: Active Medications Generic Name Dose Route Start Last Admin Trade Name Freq PRN Reason Stop Dose Admin Hydrocodone Bitart/Acetaminophen 1 tab 08/14/23 12:36 Hydrocodone/Acetaminophen (*Crx) 5-325 Mg Tablet PO Q3H PRN Pain Rated 5 or Less Hydrocodone Bitart/Acetaminophen 1 tab 08/14/23 12:36 08/15/23 12:43 Hydrocodone/Acetaminophen (*Crx) 10-325 Mg Tablet PO 1 tab Q3H PRN Administration Pain Rated 6 or Greater Ascorbic Acid 2,000 mg 08/15/23 09:00 08/15/23 08:03 Ascorbic Acid 500 Mg Tablet PO 2,000 mg QAM VEL Administration Duloxetine HCl 90 mg 08/15/23 09:00 08/15/23 08:04 Duloxetine Hcl 30 Mg Capsule.Dr PO 90 mg DAILY VEL Administration Estradiol 0.05 mg 08/14/23 12:36 08/14/23 17:15 Estradiol 7 Day 0.05 Mg Patch TRANSDERM 0.05 mg WEEKLY VEL Administration Dextrose/Sodium Chloride 1,000 mls @ 125 mls/hr 08/14/23 12:36 08/14/23 21:14 Dextrose 5% Sodium Chloride 0.45% IV CONT 125 mls/hr .Q8H VEL Administration Ibuprofen 800 mg 08/14/23 12:36 Ibuprofen 400 Mg Tablet PO TID PRN pain Ibuprofen 600 mg 08/14/23 12:36 08/15/23 08:01 Ibuprofen 600 Mg Tablet PO 600 mg Q6H PRN Administration Cramping Ketorolac Tromethamine 30 mg 08/14/23 12:36 08/15/23 02:30 Ketorolac 30 Mg/Ml Vial (*Bkc) IV PUSH 08/19/23 12:35 30 mg Q6H PRN Administration Pain Rated 4-6 Naloxone HCl 0.1 mg 08/14/23 12:36 Naloxone Hcl 0.4 Mg/Ml Vial IV PUSH Q2M PRN Respiratory rate less than 10 Ondansetron HCl 4 mg 08/14/23 12:36 Ondansetron Hcl Odt 4 Mg Tablet PO Q8H PRN nausea and vomiting Ondansetron HCl 4 mg 08/14/23 12:36 Ondansetron Inj 4 Mg/2 Ml Vial IV PUSH Q6H PRN Nausea And Vomiting Simethicone 80 mg 08/14/23 12:36 08/15/23 12:44 Simethicone 80 Mg Tab.Chew PO 80 mg TIDWM VEL Administration Vitamin B Complex 1 cap 08/15/23 09:00 08/15/23 08:03 Vitamin B Complex Capsule PO 1 cap DAILY VEL Administration
--- NOTE | 2023-08-15 13:05 | WPDANESPN ---
Anes - Prog Note Post-Op Date/Time: 08/15/23 13:05 Cardiovascular status: normal Respiratory status: normal Airway patency: baseline Mental status: baseline Post-Op hydration status: normal Vital Signs: Last Vital Signs Temp 37.2 C 08/15/23 08:45 Pulse 68 08/15/23 08:45 Resp 16 08/15/23 08:45 BP 92/46 L 08/15/23 08:45 Pulse Ox 98 08/15/23 08:45 O2 Del Method Room Air 08/14/23 17:00 O2 Flow Rate 10 08/14/23 12:00 Pain Score (VAS): 310 I/O: Intake & Output 08/14/23 08/15/23 08/15/23 23:59 07:59 15:59 Intake Total 2240 Output Total 1000 1400 Balance 1240 -1400 Post-procedural complaints: none Patient Feedback: Patient satisfied with anesthetic care.
--- NOTE | 2023-08-15 13:06 | PC.NURSE ---
Discharge late due to waiting on OB doctor to arrive at 1230.
== END 2023-08-15 13:35 | disposition home or self-care (01) ==
LOC: ANHSURGERY 08:58 → ANHOB2 12:46
PROVIDERS: Visit Provider Obstetrics & Gynecology
PROC: 0UT9FZZ Resection of Uterus, Via Natural or Artificial Opening With Percutaneous Endoscopic Assistance (ICD-10-PCS; CPT 58571; principal; 2023-08-14 10:00)
DX: N92.0 Excessive and frequent menstruation with regular cycle (principal); N84.0 Polyp of corpus uteri; F12.90 Cannabis use, unspecified, uncomplicated; Z79.1 Long term (current) use of non-steroidal anti-inflammatories (NSAID)
CPT/HCPCS: 58571; 88307; 99199; A9270; J0690; J1100; J1885; J2250; J2405; J2704; J3010; J7030; J7120; Q9968

== ENCOUNTER 2023-09-19 19:26 | Emergency (ER) | payer OTHER, SELFPAY ==
[2023-09-19 19:30] VITALS: BP 105/73; PULSE 94; RESP 95; TEMP 36.7; O2SAT 18
--- NOTE | 2023-09-19 19:39 | ED.WOUNDLAC ---
HPI - Wound/Laceration General Chief Complaint: Wound/Laceration Stated Complaint: thumb laceration Time Seen by Provider: 09/19/23 19:39 Source: patient Mode of arrival: ambulatory Limitations: no limitations History of Present Illness HPI narrative: patient presents with a laceration to the right thumb after she was opening a can of peas the area is the palmar surface of her right thumb well-approximated currently not bleeding approximately 2cm in length. Onset (ago): hour(s) Extremity Location: Right: hand ( laceration thumb) Place: home Patient tetanus UTD: Yes Context: accidental Associated symptoms: none Related Data Home Medications Medication Instructions Recorded Confirmed duloxetine 30 mg capsule,delayed 90 mg PO DAILY 04/28/23 09/19/23 release Allergies Allergy/AdvReac Type Severity Reaction Status Date / Time No Known Allergies Allergy Mild Verified 08/14/23 08:24 Review of Systems Review of Systems: All systems reviewed & are unremarkable except as noted in HPI and below PMFSH Past Medical History Medical History Patient denies medical problems Social History Social History Smoking status: Never smoker Second hand tobacco smoke exposure: No Alcohol intake: current Alcohol use details: very rarely Substance use: current Substance use type: marijuana Other substance usage details: daily use Living arrangements: with family Gender identity (if verbalized by the patient): Female Spiritual care concerns: No Exam Const: General: healthy appearing and no acute distress Nutritional Appearance: well nourished Orientation/consciousness: patient oriented x3 Limitations: no limitations Cardio: Rate: regular rate Rhythm: regular rhythm GI: GI Palp: Yes Soft to palpation Auscultation: normal bowel sounds Skin: Other: 2cm non gaping laceration to the palmar surface of her right thumb with no numbness or tingling has good range of motion of her thumb. Neuro: General: patient oriented x3 Course Course Emergency Course: Area was cleaned and Dermabond was placed with a laceration of her right thumb and her tetanus is up-to-date. Vital Signs Vital signs: Vital Signs Temperature 36.7 C 09/19/23 19:30 Pulse Rate 94 09/19/23 19:30 Respiratory Rate 95 H 09/19/23 19:30 Blood Pressure 105/73 09/19/23 19:30 Pulse Oximetry 18 L 09/19/23 19:30 Oxygen Delivery Room Air 09/19/23 19:30 Temperature 36.7 C 09/19/23 19:30 Pulse Rate 78 09/19/23 19:53 Respiratory Rate 18 09/19/23 19:53 Blood Pressure 110/68 09/19/23 19:53 Pulse Oximetry 99 09/19/23 19:53 Oxygen Delivery Room Air 09/19/23 19:53 Procedures Laceration Laceration 1: Date: 09/19/23 Time: 19:44 Site: hand ( Right thumb) Side (If applicable): right Size (cm): 2 Description: linear Depth: simple, single layer Pre-repair: wound explored and irrigated ====== Skin Level ====== Skin layer closed with: dermabond ====== Subcutaneous Layer ====== ====== Muscle Layer ====== ====== Tendon Layer ====== Critical Care Time Critical Care Time Critical Care Time: No Discharge Plan Discharge Clinical Impression: Laceration Patient Disposition: Home, Self-Care Condition: Stable Instructions: Antibiotic Form, Laceration (ED), Skin Adhesive Care (ED) Additional Instructions: take Tylenol or Motrin for pain and follow up with primary if symptoms persist or worsen. Prescriptions: No Action duloxetine 30 mg capsule,delayed release(DR/EC) 90 mg PO DAILY Patient Comments: patient takes in the AM Follow-up/Referrals: UNKNOWN,DOCTOR [Primary Care Provider] - Time of Disposition: 19:45
[2023-09-19 19:53] VITALS: BP 110/68; PULSE 78; RESP 18; O2SAT 99
== END 2023-09-19 19:53 | disposition home or self-care (01) ==
PROVIDERS: Emergency Provider Emergency Medicine
DX: S61.011A Laceration without foreign body of right thumb without damage to nail, initial encounter (principal); Z79.899 Other long term (current) drug therapy; W26.8XXA Contact with other sharp object(s), not elsewhere classified, initial encounter
CPT/HCPCS: 12001; 99282

== ENCOUNTER 2023-10-24 10:33 | Outpatient (CLI) | payer OTHER, SELFPAY ==
[2023-10-24 10:46] LABS: Mean Corpuscular HGB Conc 31.7 g/dL (32-36); Mean Corpuscular Hemoglobin 29.4 pg (27.0-31.0); Mean Corpuscular Volume 92.8 fL (78.0-102.0); Mean Platelet Volume 8.4 fl (9.2-11.8); Platelet Count Result 361 K/mm3 (150-420); Red Blood Count 4.42 M/mm3 (4.20-5.40); Red Cell Distribution Width 12.4 % (11.6-14.4)
[2023-10-24 10:57] LABS: Hemoglobin A1C 5.5 % (<5.7)
[2023-10-24 11:40] LABS: Alanine Aminotransferase 16 U/L (14-59); Albumin Level 3.9 g/dL (3.4-5.0); Alkaline Phosphatase 48 U/L (46-116); Anion Gap 10 mmol/L (4-12); Aspartate Amino Transferase 11 U/L (15-37); Bilirubin,Total 0.3 mg/dL (0.00-1.00); Blood Urea Nitrogen 15 mg/dL (7-18); Carbon Dioxide 25 mmol/L (21-32); Chloride 106 mmol/L (98-108); Cholesterol 208 mg/dL (0-200); Estimated Glomerular Filt Rate > 60; Glucose 93 mg/dL (70-99); HDL Direct 78 mg/dL (40-60); LDL Cholesterol Calculated 121 mg/dL (<130); Osmolality Calculated 292 mOsm/kg (285-295); Potassium 4.4 mmol/L (3.5-5.1); Sodium 141 mmol/L (136-145); Thyroid Stimulating Hormone 0.75 uIU/mL (0.36-3.74); Total Protein 6.9 g/dL (6.4-8.2); Triglycerides 44 mg/dL (0-150)
== END 2023-10-24 10:34 | disposition home or self-care (01) ==
DX: Z79.899 Other long term (current) drug therapy (principal)
CPT/HCPCS: 36415; 80053; 80061; 83036; 84443; 85027

== ENCOUNTER 2024-02-25 15:07 | Emergency (ER) | payer OTHER, SELFPAY ==
--- NOTE | 2024-02-25 15:23 | ED_ITS ---
HPI - General Adult General Chief complaint: Urogenital-Female Stated complaint: UTI Time Seen by Provider: 02/25/24 15:22 Source: patient Mode of arrival: ambulatory Limitations: no limitations History of Present Illness HPI narrative: 38-year-old white female complains of problems urinating urinary frequency , hesitancy,dysuria hematuria and pain with intercourse for the past 2 days. History urinary tract infections in the past. She has taken azo tablets which has turned her urine orange. She said she did have some blood in the urine however. Denies any history of STDs. Denies any cough fever sore throat runny nose problems walking talking seeing hearing hearing nausea vomiting diarrhea problems stooling swelling lumps or bumps other bleeding or bruising. She does say she bruises easily. Denies any other complaints. she rates her pain as a 6/10 but the 10/10 when she is trying to void. Past surgical history:Hysterectomy Medications Tylenol Cymbalta sertraline estradiol Flexeril Allergies: No known drug allergies Past medical history: Seizures she has not had a seizure in over 5 years fibromyalgia, anxiety depression. Past surgical history: Hysterectomy with removal of her ovaries. Related Data Home Medications Medication Instructions Recorded Confirmed duloxetine 30 mg capsule,delayed 90 mg PO DAILY 04/28/23 02/25/24 release estradiol 1 mg tablet mg 02/25/24 sertraline 50 mg tablet mg 02/25/24 Allergies Allergy/AdvReac Type Severity Reaction Status Date / Time No Known Allergies Allergy Mild Verified 08/14/23 08:24 Review of Systems Review of Systems: All systems reviewed & are unremarkable except as noted in HPI and below PMFSH Past Medical History Medical History Patient denies medical problems Social History Social History Smoking status: Never smoker Second hand tobacco smoke exposure: No Alcohol intake: current Alcohol use details: very rarely Substance use: current Substance use type: marijuana Other substance usage details: daily use Living arrangements: with family Gender identity (if verbalized by the patient): Female Spiritual care concerns: No Exam Narrative: White female patient with no apparent distress.? Head normocephalic, atraumatic.? Eyes conjunctiva pink sclera nonicteric.? Extraocular movements are intact.? Ears externally normal.? Oropharynx is clear with moist mucous membranes without exudates.? Neck is supple nontender no lymphadenopathy.? Back is nontender.? Lungs are clear.? Heart is regular rate and rhythm without mu rmurs gallops or rubs.? Chest wall nontender. Abdomen is soft and mild suprapubic tenderness without rebound or CVA tenderness. No hepatosplenomegaly or masses. No abdominal bruits.? Extremities no cyanosis clubbing or edema.? Skin is warm and dry without rashes or lesions.? Neurological patient is alert and oriented x4.? Motor and sensory grossly intact.? Gait is normal. Medical Decision Making MDM Narrative Medical decision making narrative: ?Patient placed in room: 2 ? History and physical was performed. urinalysis is consistent with a urinary tract infection. Independent Historian: patient External Source Review: Differential Dx includes but not limited to: urinary tract infection pyelonephritis cystitis Medications were Reviewed: home meds reviewed Medications given: Cipro 500 total 30 mg IM Independently Interpreted by me: labs independently interpreted by me. Shared decision Making: evaluation was discussed all questions were asked and answered patient agreed with plan. Patient would start Cipro 250 mg twice a day for 7 days tomorrow when she can take some of her azo for the next 3 days. Should increase her fluids by mouth return if she got worse or develops any new symptoms. Social Situation Impacting Patients Care: Discussed with Dr. NGUYEN DIAGNOSIS: Acute urinary tract infection DISPOSITION : discharge home CONDITION AT DISCHARGE: stable Discharge Plan Discharge Clinical Impression: Acute UTI Patient Disposition: Home, Self-Care Condition: Stable Instructions: Antibiotic Form, Urinary Tract Infection in Women (ED) Additional Instructions: Cipro 250 mg twice a day for 7 days. He can take her azo 3 times a day for the next 3 days if needed. Take Tylenol and/or ibuprofen as needed for pain. Increase her fluids by mouth. Return if you get worse or develops any new symptoms. Follow-up with your primary care provider any problems or concerns. Prescriptions: No Action estradiol 1 mg tablet sertraline 50 mg tablet duloxetine 30 mg capsule,delayed release(DR/EC) 90 mg PO DAILY Patient Comments: patient takes in the AM Follow-up/Referrals: UNKNOWN,DOCTOR [Primary Care Provider] - Time of Disposition: 16:35
--- NOTE | 2024-02-25 15:43 | PC.NURSE ---
Pt informed MD she has taken pyridium for symptom management.
[2024-02-25 16:00] LABS: Appearance Urine Clear (Clear); Bilirubin Urine Negative (Negative); Blood Urine 2+ (Negative); Glucose Urine UA 2+ (Negative); Ketones Urine 1+ (Negative); Leukocyte Esterase Ur 2+ LEU/UL (Negative); Nitrate Urine Positive (Negative); Protein Urine 3+ (Negative); Specific Grav Ur 1.025 (1.010-1.020); Urobilinogen Urine >=8.0 mg/dL (0.2-1.0); pH Urine 6.5 (5.0-8.0)
[2024-02-25 16:16] LABS: Add Urine Microscopic? YES; Color Urine Dark Orange (Yellow)
[2024-02-25 16:17] LABS: Bacteria Urine Trace /hpf; RBC Urine 21-50 /hpf (0-2); Squamous Epithelial Cell Urine Rare /hpf (Few)
[2024-02-25] MEDS: CIPROFLOXACIN 500 MG TAB PO (16:39)
[2024-02-25] MEDS: KETOROLAC 30 MG/ML VIAL (*BKC) IM (16:39)
== END 2024-02-25 16:52 | disposition home or self-care (01) ==
PROVIDERS: Emergency Provider Emergency Medicine
DX: N39.0 Urinary tract infection, site not specified (principal); R31.9 Hematuria, unspecified; Z79.899 Other long term (current) drug therapy
CPT/HCPCS: 81001; 87086; 96372; 99283; A9270; J1885

== ENCOUNTER 2024-05-10 18:54 | Emergency (ER) | payer OTHER, SELFPAY ==
[2024-05-10 18:56] VITALS: BP 107/70; PULSE 74; RESP 18; TEMP 37.2; O2SAT 99
--- OUTSIDE RECORDS SUMMARY | 2024-05-10 18:57 | XMS_ITS | Data Portability ---
Author Organization [facility] [place] Address [address] [place] [address] [place] [address] Assessment No assessment recorded. Plan of Treatment Reminders Order Date Submit Date Provider Last Modified By Organization Details Last Modified Time Details Appointments None recorded. Lab urinalysis, dipstick 2023 024 [email or web address] 1 [place], [address], [place], [address], 4 13:02:21 culture, urine 2023 024 [facility] (Lab), [address], [place], [address], 4 03:38:01 Referral None recorded. Procedures None recorded. Surgeries total hysterectom y, laparoscopi c, with bilateral salpingo-oo phorectomy (SURG) [address] [facility], [address], [place], [address], 4 12:30:23 Imaging US, pelvis 2023 024 [email or web address] [place], [address], [address], [place], [address], 4 19:06:48 US, transvagina l 2023 024 [email or web address] [place], [address], [place], [address], 19:06:48 Medication Orders oxycodone-a cetaminophe n 5 mg-325 mg tablet 2023 024 [email or web address] 1 [id number], [address], [place], [id number], 11:48:27 estradiol 1 mg tablet 2023 024 [facility] #[id number], [address], [place], [id number], 12:45:44 tramadol 50 mg tablet 2023 024 [facility] #[id number], [address] [place], [address], 12:17:16 Patient TargetsNo targets recorded. Patient InstructionsNo instructions recorded. Reason for Referral None Reported. Results Created Date Observation Date Name Description Value Unit Range Abnormal Flag Note LastModifiedBy Organization Detail LastModifiedTime 07/08/19 24 07/08/2023 urina lysis , dipst ick Leukocytes +1 Not Available Maddy [facility] [address], [place], [address], 07/08/2023 15:49:52 07/08/19 24 07/08/2023 urina lysis , dipst ick Nitrite normal Not Available [place] [address], [place], [address], 07/08/2023 15:49:52 07/08/19 24 07/08/2023 urina lysis , dipst ick Urobilinogen normal Not Available [facility] [address], [place], [address], 07/08/2023 15:49:52 07/08/19 24 07/08/2023 urina lysis , dipst ick Protein trace Not Available [place] [address], [place], [address], 07/08/2023 15:49:52 07/08/19 24 07/08/2023 urina lysis , dipst ick pH 6 Not Available [place] [address], [place], [address], 07/08/2023 15:49:52 07/08/19 24 07/08/2023 urina lysis , dipst ick Specific [place] 1.020 Not Available [facility] anastasiia [address], [place], [address], 07/08/2023 15:49:52 07/08/19 24 07/08/2023 urina lysis , dipst ick Ketone +1 Not Available [place] [address], [place], [address], 07/08/2023 15:49:52 07/08/19 24 07/08/2023 urina lysis , dipst ick Bilirubin normal Not Available [facility] jodee [address], [place], [address], 07/08/2023 15:49:52 07/08/19 24 07/08/2023 urina lysis , dipst ick Glucose normal Not Available [place] [address], [place], [address], 07/08/2023 15:49:52 07/08/19 24 07/08/2023 urina lysis , dipst ick Appearance normal Not Available [facility] [address], [place], [address], 07/08/2023 15:49:52 07/08/19 24 07/08/2023 urina lysis , dipst ick Color normal Not Available [place] [address], [place], [address], 07/08/2023 15:49:52 07/08/19 24 07/08/2023 pregn tania test, urine HCG negati ve Not Available [place] [address], [place], [address], 07/08/2023 15:50:06 07/09/19 24 07/09/2023 CBC W/DIF F WBC 7.4 10'3/ uL 3.5-10 .5 Not Available [facility] (Lab) [address] , [place], [address], 07/16/2023 01:44:13 07/09/19 24 07/09/2023 CBC W/DIF F RBC 3.86 10'6/ uL (based on docume nted legal sex) 3.80-5 .20 Not Available [facility] (Lab) [address], [place], [address], 07/16/2023 01:44:13 07/09/19 24 07/09/2023 CBC W/DIF F HGB 11.7 g/dL (based on docume nted legal sex) 11.6-1 5.4 Not Available [facility] (Lab) [address], [place], [address], 07/16/2023 01:44:13 07/09/19 24 07/09/2023 CBC W/DIF F HCT 35.7 % (based on docume nted legal sex) 34.0-4 5.0 Not Available [facility] (Lab) [address], [place], [address], 07/16/2023 01:44:13 07/09/19 24 07/09/2023 CBC W/DIF F MCV 92.5 fL 80.0-9 9.0 Not Available [facility] (Lab) [address], [place], [address], 07/16/2023 01:44:13 07/09/19 24 07/09/2023 CBC W/DIF F MCH 30.3 pg 27.0-3 4.0 Not Available [facility] (Lab) [address], [place], [address], 07/16/2023 01:44:13 07/09/19 24 07/09/2023 CBC W/DIF F MCHC 32.8 g/dL 32.0-3 5.5 Not Available [facility] (Lab) [address], [place], [address], 07/16/2023 01:44:13 07/09/19 24 07/09/2023 CBC W/DIF F RDW 12.9 % 11.0-1 5.0 Not Available [facility] (Lab) [address], [place], [address], 07/16/2023 01:44:13 07/09/19 24 07/09/2023 CBC W/DIF F plt 382 10'3/ uL 150-40 0 Not Available [facility] (Lab) [address], [place], [address], 07/16/2023 01:44:13 07/09/1907/09/2023 CBC W/DIF F MPV 9.5 fL 8.8-12 .1 Not Available [facility] (Lab) [address], [place], [address], 07/16/2023 01:44:13 07/09/1907/09/2023 CBC W/DIF F NRBC's 0.0 % 0.0 Not Available [facility] (Lab) [address], [place], [address], 07/16/2023 01:44:13 07/09/1907/09/2023 CBC W/DIF F absolute NRBCs 0.0 10'3/ uL no refere nce range establ ished Not Available [facility] (Lab) [address], [place], [address], 07/16/2023 01:44:13 07/09/19 24 07/09/2023 CBC W/DIF F neutrophils 59.0 % 34.0-7 3.0 Not Available [facility] (Lab) [address] [place], [address], 07/16/2023 01:44:13 07/09/19 24 07/09/2023 CBC W/DIF F lymphocytes 33.2 % 15.0-5 0.0 Not Available [facility] (Lab) [address], [place], [address], 07/16/2023 01:44:13 07/09/19 24 07/09/2023 CBC W/DIF F monocytes 5.4 % 1.0-15 .0 Not Available [facility] (Lab) [address], [place], [address], 07/16/2023 01:44:13 07/09/19 24 07/09/2023 CBC W/DIF F eosinophils 1.6 % 0.0-8. 0 Not Available [facility] (Lab) [address], [place], [address], 07/16/2023 01:44:13 07/09/19 24 07/09/2023 CBC W/DIF F basophils 0.7 % 0.0-2. 0 Not Available [facility] (Lab) [address], [place], [address], 07/16/2023 01:44:13 07/09/19 24 07/09/2023 CBC W/DIF F immature granulocytes 0.1 % no define d refere nce range Not Available [facility] (Lab) [address] [place], [address], 07/16/2023 01:44:13 07/09/19 24 07/09/2023 CBC W/DIF F absolute neutrophils 4.3 10'3/ uL 1.5-8. 0 Not Available [facility] (Lab) [address] [place], [address], 07/16/2023 01:44:13 07/09/19 24 07/09/2023 CBC W/DIF F absolute lymphocytes 2.4 10'3/ uL 1.0-4. 0 Not Available [facility] (Lab) [address], [place], [address], 07/16/2023 01:44:13 07/09/19 24 07/09/2023 CBC W/DIF F absolute monocytes 0.4 10'3/ uL 0.2-1. 0 Not Available [facility] (Lab) [address], [place], [address], 07/16/2023 01:44:13 07/09/19 24 07/09/2023 CBC W/DIF F absolute eosinophils 0.1 10'3/ uL 0.0-0. 6 Not Available [facility] (Lab) [address], [place], [address], 07/16/2023 01:44:13 07/09/19 24 07/09/2023 CBC W/DIF F absolute basophils 0.1 10'3/ uL 0.0-0. 3 Not Available [facility] (Lab) [address], [place], [address], 07/16/2023 01:44:13 07/09/19 24 07/09/2023 CBC W/DIF F absolute immature granulocytes 0.0 10'3/ uL 0.00-0 .10 024 1:17 AM: P indic ates parti al resul ts on a panel have been relea sed. Addit ional resul ts will follo w. 024 1:17 AM: This resul t has been final verif ied. No addit ional or deleon ed resul ts are expec chris. Not Available [facility] (Lab) [address], [place], [address], 07/16/2023 01:44:13 07/09/19 24 07/09/2023 DHEA SULFA TE DHEA-sulfate 132 ug/dL Femal e Range s Age(y ) Range (ug/d L) 10-15 34-28 0 15-20 65-36 8 20-25 148-4 07 25-35 99-34 0 35-45 61-33 7 45-55 35-25 6 55-65 19-20 5 65-75 9-246 > 75 12-15 4 Not Available [facility] (Lab) [address] [place], [address], 07/16/2023 01:44:16 07/09/19 24 07/09/2023 LIPID PANEL ,AMA (LDL- CALC) total cholesterol 154 mg/dL 0-199 Not Available [facility] (Lab) [address] [place], [address], 07/16/2023 01:44:16 07/09/19 24 07/09/2023 LIPID PANEL ,AMA (LDL- CALC) triglyceride s 52 mg/dL 0-150 NCEP Refer ence Value s for Trigl yceri rosmery: Toma l: <150 mg/dL Borde rline High: 150 - 199 mg/dL High: 200 - 499 mg/dL Very High: >/= 500 mg/dL Not Available [facility] (Lab) [address] [place], [address], 07/16/2023 01:44:16 07/09/19 24 07/09/2023 LIPID PANEL ,AMA (LDL- CALC) HDL cholesterol 65 mg/dL >40 Not Available [facility] (Lab) [address] [place], [address], 07/16/2023 01:44:16 07/09/19 24 07/09/2023 LIPID PANEL ,AMA (LDL- CALC) LDL cholesterol 76 mg/dL 0-99 Cutof f value s recom kaylei d by the Natio nal Richa stero l Educa tion Progr am: MARCO ABLE: Richa stero l <200 mg/dL LDL <100 mg/dL BORDE RLINE : Richa stero l 200-2 39 mg/dL LDL 101-1 59 mg/dL HIGHE R RISK: Richa stero l >240 mg/dL LDL >160 mg/dL , HDL <40 mg/dL Not Available [facility] (Lab) [address], [place], [address], 07/16/2023 01:44:16 07/09/19 24 07/09/2023 LIPID PANEL ,AMA (LDL- CALC) non-HDL cholesterol 89 mg/dL no refere nce range A reaso nable goal for non-H DL richa stero l is one that is 30 mg/dL highe r than the LDL richa stero l goal. Not Available [facility] (Lab) [address], [place], [address], 07/16/2023 01:44:16 07/09/1907/09/2023 LIPID PANEL ,AMA (LDL- CALC) chol/HDL ratio 2.4 . 0.0-5. 0 On July 31, 2022, [facility] labor atori nicole deleon ed the equat ion for calcu latin g estim ated low-d ensit y lipop rotei n-cho leste rol (LDL- C) from the Fried alyse equat ion to the Ella liliam/Little murphy equat ion. This new equat ion is only valid for lipid panel s with trigl yceri rosmery < 400 mg/dL . Georgianai es humberto ramoson soni ed that this new equat ion will impro ve the accur acy of LDL-C , espec ially in scena garcia when LDL-C oksana ntrat ions are relat ively low (< 100 mg/dL ), trigl yceri rosmery are eleva chris, or patie nt is non-f astin g. Refer ences : - Ella ricketts, Eder Man, Charles Lawrence , Desire briceño, Alban Zuniga, Alban culp, [facility] , and Kenroy Blackwell . 2013. Comp ariso n of a Novel Metho d vs the Fried alyse Equat ion for Estim ating Low-D ensit y Lipop rotei n Richa stero l Level s from the [facility] fabian Lipid Jarek hilliard. FRANK: The Journ al of the Ameri can Medic al Assoc iatio n 310 (19): 2060- . - Baljeet bustillo V, Clara J, Carolyn bustillo A, Yvonne M, Kevon ellsworth R, Dagoberto bustillo E, Minesh gusman RS, Rishi SR, Ella n SS. Fast ing Versu s Nonfa sting and Low-D ensit y Lipop rotei n Richa stero l Accur acy. Circu latio n. 2017Apr 09;137 (1):1 0-19. Not Available [facility] (Lab) [address], [place], [address], 07/16/2023 01:44:16 07/09/19 24 07/09/2023 CMP(C OMPRE HENSI VE METAB OLIC PANEL ) sodium 138 mmol/ L 133-14 6 Not Available [facility] (Lab) [address], [place], [address], 07/16/2023 01:44:17 07/09/19 24 07/09/2023 CMP(C OMPRE HENSI VE METAB OLIC PANEL ) potassium 3.7 mmol/ L 3.5-5. 1 Not Available [facility] (Lab) [address], [place], [address], 07/16/2023 01:44:17 07/09/19 24 07/09/2023 CMP(C OMPRE HENSI VE METAB OLIC PANEL ) chloride 104 mmol/ L 98-107 Not Available [facility] (Lab) [address] [place], [address], 07/16/2023 01:44:17 07/09/19 24 07/09/2023 CMP(C OMPRE HENSI VE METAB OLIC PANEL ) carbon dioxide 28 mmol/ L 21-31 Not Available [facility] (Lab) [address], [place], [address], 07/16/2023 01:44:17 07/09/19 24 07/09/2023 CMP(C OMPRE HENSI VE METAB OLIC PANEL ) anion gap 6 mmol/ L 4-13 Not Available [facility] (Lab) [address], [place], [address], 07/16/2023 01:44:17 07/09/19 24 07/09/2023 CMP(C OMPRE HENSI VE METAB OLIC PANEL ) blood urea nitrogen 15 mg/dL 7-25 Not Available [facility] (Lab) [address], [place], [address], 07/16/2023 01:44:17 07/09/19 24 07/09/2023 CMP(C OMPRE HENSI VE METAB OLIC PANEL ) creatinine 0.80 mg/dL 0.60-1 .30 Not Available [facility] (Lab) [address], [place], [address], 07/16/2023 01:44:17 07/09/19 24 07/09/2023 CMP(C OMPRE HENSI VE METAB OLIC PANEL ) egfrcr (CKD-epi 2020) >90 mL/mi n/1.7 3_m2 >=60 Not Available [facility] (Lab) [address], [place], [address], 07/16/2023 01:44:17 07/09/19 24 07/09/2023 CMP(C OMPRE HENSI VE METAB OLIC PANEL ) calcium 9.4 mg/dL 8.3-10 .5 Not Available [facility] (Lab) [address], [place], [address], 07/16/2023 01:44:17 07/09/19 24 07/09/2023 CMP(C OMPRE HENSI VE METAB OLIC PANEL ) glucose 79 mg/dL 70-100 Not Available [facility] (Lab) [address], [place], [address], 07/16/2023 01:44:17 07/09/19 24 07/09/2023 CMP(C OMPRE HENSI VE METAB OLIC PANEL ) protein, total 6.0 g/dL 6.4-8. 3 low Not Available [facility] (Lab) [address], [place], [address], 07/16/2023 01:44:17 07/09/19 24 07/09/2023 CMP(C OMPRE HENSI VE METAB OLIC PANEL ) albumin 4.2 g/dL 3.5-5. 0 Not Available [facility] (Lab) [address], [place], [address], 07/16/2023 01:44:17 07/09/19 24 07/09/2023 CMP(C OMPRE HENSI VE METAB OLIC PANEL ) ALT 8 units /L 9-43 low Not Available [facility] (Lab) [address], [place], [address], 07/16/2023 01:44:17 07/09/19 24 07/09/2023 CMP(C OMPRE HENSI VE METAB OLIC PANEL ) alkaline phosphatase 32 units /L 34-104 low Not Available [facility] (Lab) [address], [place], [address], 07/16/2023 01:44:17 07/09/19 24 07/09/2023 CMP(C OMPRE HENSI VE METAB OLIC PANEL ) AST 11 units /L 13-39 low Not Available [facility] (Lab) [address], [place], [address], 07/16/2023 01:44:17 07/09/19 24 07/09/2023 CMP(C OMPRE HENSI VE METAB OLIC PANEL ) bilirubin, total 0.3 mg/dL 0.2-1. 2 Not Available [facility] (Lab) [address] [place], [address], 07/16/2023 01:44:17 07/09/19 24 07/09/2023 TSH, REFLE X FREE T4 TSH 0.97 uIU/m L 0.30-5 .33 Not Available [facility] (Lab) [address] [place], [address], 07/16/2023 01:44:17 07/09/19 24 07/09/2023 HUMAN SEX HORMO NE AMBER NG COREYU TRES sex hormone binding globulin 146.0 nmole s/L 18.2-1 35.5 high Not Available [facility] (Lab) [address] [place], [address], 07/16/2023 01:44:18 07/09/19 24 07/09/2023 ESTRA DIOL estradiol 128.0 pg/mL This assay was perfo rmed using [employer] ratio n reage nts and test kits. Value s obtai dick with other assay metho ds or kits canno t be used inter deleon eaport neches . Femal e Estra diol Range s: Folli cular phasE 12.4- 233 pg/mL Ovula tion phasE 41.0- 398 pg/mL Lutea l phasE 22.3- 341 pg/mL Postm enopa usal <5-13 8 pg/mL Healt hy Pregn ant Women 1st Trime ster 154-3 243 pg/mL 2nd Trime ster 1561- 75236 pg/mL 3rd Trime ster 8525- >3000 0 pg/mL Not Available [facility] (Lab) [address] [place], [address], 07/16/2023 01:44:18 07/09/1907/09/2023 PROGE STERO NE progesterone 0.27 NG/mL This assay was perfo rmed using [employer] reage nts and test kits. Value s obtai dick with other assay metho ds or kits canno t be used inter deleon eably . Femal e Proge stero ne Range s: Folli cular phasE 0.06- 0.89 ng/mL Ovula tion phasE 0.12- 12.00 ng/mL Lutea l phasE 1.83- 23.90 ng/mL Postm enopa usal <0.05 -0.13 ng/mL Healt hy Pregn ant Women 1st Trime ster 11.0- 44.30 2nd Trime ster 25.40 -83.3 0 3rd Trime ster 58.70 -214. 00 Not Available [facility] (Lab) [address], [place], [address], 07/16/2023 01:44:19 07/09/19 24 07/09/2023 PROLA CTIN prolactin, total 13.00 NG/mL 4.79-2 3.30 This assay was perfo rmed using [employer] reage nts and test kits. Value s obtai dick with other assay metho ds or kits canno t be used inter [facility] . Not Available [facility] (Lab) [address], [place], [address], 07/16/2023 01:44:19 07/09/19 24 07/09/2023 LH (LUTE NIZIN G HORMO NE) LH 2.0 mIU/m L This assay was perfo rmed using [employer] reage nts and test kits. Value s obtai dick with other assay metho ds or kits canno t be used inter [facility] . Femal es Mid-F ollic ular: 2.4-1 2.6 mIU/m L Mid-C ycle: 14.0- 95.6 mIU/m L Mid-L uteal : 1.0-1 1.4 mIU/m L Postm enopa use: 7.7-5 8.5 mIU/m L Not Available [facility] (Lab) [address], [place], [address], 07/16/2023 01:44:19 07/09/19 24 07/09/2023 FSH FSH 3.4 mIU/m L This assay was perfo rmed using [employer] reage nts and test kits. Value s obtai dick with other assay metho ds or kits canno t be used inter [facility] . Femal es Folli cular : 3.5-1 2.5 mIU/m L Ovula tion: 4.7-2 1.5 mIU/m L Lutea l: 1.7-7 .7 mIU/m L Postm enopa use: 25.8- 134.8 mIU/m L Not Available [facility] (Lab) [address], [place], [address], 07/16/2023 01:44:20 07/09/19 24 07/09/2023 VITAM IN D, 25-OH (TOTA L D2/D3 ) vitamin D, 25-hydroxy, total 15.1 NG/mL 30.0-1 00.0 low Sugge stive of Defic iency : <20 ng/mL Sugge stive of Insuf ficie ncy: 20-29 ng/mL Sugge stive of Suffi cienc y: 30-10 0 ng/mL Sugge stive of Toxic ity: >150 ng/mL Not Available [facility] (Lab) [address], [place], [address], 07/16/2023 01:44:20 07/09/19 24 07/09/2023 HEMOG LOBIN A1C hemoglobin A1C 5.1 % 0-5.6 The Ameri can Diabe stephanie Assoc iatio n recom mends that a prima ry goal of thera py shoul d be a HBA1C of < 7% and that physi cians shoul d reeva luate the treat ment regim en in patie nts with HBA1C value s consi stent ly > 8%. <5.7% Toma l 5.7 - 6.4% Incre ased risk for diabe stephanie >=6.5 % Diagn ostic of diabe stephanie <7.0% Goal of thera py >8.0% Actio n sugge sted Not Available [facility] (Lab) [address], [place], [address], 07/16/2023 01:44:21 07/09/19 24 07/09/2023 TESTO STERO NE, FREE( DIALY SIS) AND TOTAL (LC/M S/MS) testosterone , total 19 NG/dL 2-45 For addit ional infor matio n, pleas e refer to http: //edu catio n.que stdia gnost ics.c om/fa q/ Total Testo stero neLCM SMSFA Q165 (This link is being provi ded for infor matio nal/ educa rick l purpo ses only. ) This test was devel oped and its caryn tical perfo rmanc e vick cteri stics have been deter mined by [employer] [place]stic [place]. It has not been clear ed or appro anand by the U.S. Food and Drug Admin istra tion. This assay has been valid ated pursu ant to the CLIA regul ation s and is used for clini kay purpo ses. Not Available [facility] (Lab) [address] [place], [address], 07/16/2023 01:44:21 07/09/19 24 07/09/2023 TESTO STERO NE, FREE( DIALY SIS) AND TOTAL (LC/M S/MS) testosterone , free 1.1 pg/mL 0.1-6. 4 This test was devel oped and its caryn tical perfo rmanc e vick cteri stics have been deter mined by [employer]stic [employer] [place], [place]. It has not been clear ed or appro anand by the U.S. Food and Drug Admin istra tion. This assay has been valid ated pursu ant to the CLIA regul ation s and is used for clini kay purpo ses. Perfo rming Organ izati on Danar paulina n: Site ID: [id number] Name: [employer] ostmario s Jerod [place] Create[employer]se Addre ss: [id number] [address] [employer] [place], [place] Direc tor: Rhoda Georges MD PhD Not Available [facility] (Lab) [address] [place], [address], 07/16/2023 01:44:21 07/09/19 24 07/09/2023 17-OH PROGE STERO NE 17-hydroxypr ogesterone, lc/MS/MS 30 NG/dL Adult Femal e Refer ence Range s for 17-Hy droxy proge stero ne: Pre-M enopa usal Mid Folli cular : 23-10 2 ng/dL Pre-M enopa usal Surge : 67-34 9 ng/dL Pre-M enopa usal Mid Lutea l: 139-4 31 ng/dL Postm enopa usal Phase : < or = 45 ng/dL Pregn tania: First Trime ster: 78-45 7 ng/dL Secon d Trime ster: 90-35 7 ng/dL Third Trime ster: 144-5 78 ng/dL This test was devel oped and its caryn tical perfo rmanc e vick cteri stics have been deter mined by [facility] efren s. It has not been clear ed or appro anand by FDA. This assay has been valid ated pursu ant to the CLIA regul ation s and is used for clini kay purpo ses. Perfo rming Organ izati on Infor matio n: Site ID: [id number] Name: Jeremy schwartz s/Tobin ramirez [facility] , Addre ss: [id number] [facility] [place] [place] [address] Direc tor: Elena desir MD,Ph D,DEANA Not Available [facility] (Lab) [address], [place], [address], 07/16/2023 01:44:22 09/30/19 24 09/30/2023 CULTU RE: URINE result report SEE RESULT S BELOW Test: Cultu re: Urine Speci men Sourc e: Urine - Clean Catch Speci men Type: Urine Speci men Date: 2023 1634 Resul t Date: 2023 0234 Resul t Statu s: Final resul t Abnor mal: No Resul ting Lab: [facility] [address] [facility] [address] Tel: CULTU RE ----- ----- ----- --- No growt h in 1 day (dete ction level of 10,00 0 colon ies / ml.) Not Available [facility] (Lab) [address], [place], [address], 10/02/2023 03:38:01 09/30/19 24 09/30/2023 urina lysis , dipst ick Leukocytes +2 Not Available [facility] [address], [place], [address], 09/30/2023 13:01:04 09/30/19 24 09/30/2023 urina lysis , dipst ick Nitrite normal Not Available [place] [address], [place], [address], 09/30/2023 13:01:04 09/30/19 24 09/30/2023 urina lysis , dipst ick Urobilinogen normal Not Available [facility] [address], [place], [address], 09/30/2023 13:01:04 09/30/19 24 09/30/2023 urina lysis , dipst ick Protein trace Not Available [place] [address], [place], [address], 09/30/2023 13:01:04 09/30/19 24 09/30/2023 urina lysis , dipst ick pH 6 Not Available [place] [address], [place], [address], 09/30/2023 13:01:04 09/30/19 24 09/30/2023 urina lysis , dipst ick Specific [place] 1.015 [facility] Available [facility] [address], [place], [address], 09/30/2023 13:01:04 09/30/19 24 09/30/2023 urina lysis , dipst ick Ketone normal Not Available [place] [address], [place], [address], 09/30/2023 13:01:04 09/30/19 24 09/30/2023 urina lysis , dipst ick Bilirubin + Not Available [facility] [address], [place], [address], 09/30/2023 13:01:04 09/30/19 24 09/30/2023 urina lysis , dipst ick Glucose normal Not Available [place] [address], [place], [address], 09/30/2023 13:01:04 09/30/19 24 09/30/2023 urina lysis , dipst ick Appearance normal Not Available [facility] [address], [place], [address], 09/30/2023 13:01:04 09/30/19 24 09/30/2023 urina lysis , dipst ick Color normal Not Available [place] [address], [place], [address], 09/30/2023 13:01:04 07/09/19 24 07/09/2023 US, pelvi s No observ ation record ed. [facility] [address], [place], [address], 07/09/2023 18:47:45 07/09/19 24 07/09/2023 US, trans vagin al No observ ation record ed. [facility] [address], [place], [address], 07/09/2023 18:47:57 07/09/1907/09/2023 US, pelvi s No observ ation record ed. [email or web address], [place], [address], 07/09/2023 19:49:55 Result Notes None recorded. Problems Name Problem SNOMED Code Status Onset Date Resolution Date Notes Provider Name and Address Organization Details Recorded Time Mixed anxiety and depressive disorder 818755530 Active 2023 Magdalena chaney, [facility] 15:45:19 Posttraumatic stress disorder 26194509 Active 2023 Magdalena chaney, [facility] 4 15:45:45 Problem Notes None recorded. Procedures Surgical History Date Name Laterality Status Provider Name and Address Organization Details Recorded Time 08/22/19 24 Nexplanon Removal completed Deonte Sahu MD [address], [place], [address], [place] [facility] 08/22/2023 16:57:49 08/14/19 24 TOTAL HYSTERECTOMY, LAPAROSCOPIC, WITH BILATERAL SALPINGO-OOPHOR ECTOMY (SURG) completed Israel Garcia [facility] 08/14/2023 12:42:00 07/08/19 24 Date of Last Pap Smear completed Magdalena Motley [facility] 07/08/2023 16:10:24 04/08/19 06 termination of completed Magdalena Motley [facility] 07/08/2023 14:44:41 Imaging Results Imaging Date Name Status LastModified by Organization Details LastModified Time 07/09/2023 US, pelvis completed ish Mejia [address], [place], [address], 07/09/2023 18:47:45 07/09/2023 US, transvaginal completed ish ellsworth [address], [place], [address], 07/09/2023 18:47:57 07/09/2023 US, pelvis completed [email or web address], [place], [address], 07/09/2023 19:49:55 Procedure Notes None recorded. Medical Equipment None Reported. Allergies Allergen ID Allergen Name Allergen Category Reaction Reaction Severity Criticality Documentation Date Start Date Code Code System Note Provider Name and Address Organization Details Recorded Time 32008 pine nut extract food Not available Not available Not available 07/08/2023 [address] [facility] 4 15:43:44 Medications Name Sig Start Date Stop Date Status Note LastModified by Organization Details LastModified Time ibuprofen 800 mg tablet TAKE 1 TABLET BY MOUTH THREE TIMES DAILY FOR 7 DAYS NEEDED FOR PAIN 07/07 completed Not Available Not Available Not Available tramadol 50 mg tablet TAKE 1 TABLET BY MOUTH EVERY 6 HOURS active Not Available Not Available No t Available [place] Multivita min chewable tablet 02/06 completed Prescrib ed Elsewher e: Yes Loca tion: [facility] odify By: lillie ramseyunter DateTime : 02/07/20 11 04:00:00 PM Not Available Not Available Not Available oxycodone -acetamin ophen 5 mg-325 mg tablet TAKE 1 TABLET BY MOUTH EVERY 6 HOURS 09/29 completed Not Available Not Available Not Available estradiol 1 mg tablet TAKE 1 TABLET BY MOUTH EVERY DAY active Not Available Not Available No t Available Celexa 20 mg tablet take 1 tablet by oral route every day 07/07 completed Prescrib ed Elsewher e: Yes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
--- NOTE | 2024-05-10 18:58 | ED_ITS ---
HPI - URI/Sore Throat General Chief Complaint: Upper Respiratory Infection Stated Complaint: fever, cough, body aches Time Seen by Provider: 05/10/24 18:56 Source: patient Mode of arrival: ambulatory Limitations: no limitations History of Present Illness HPI Narrative: patient is a 38-year-old female with nausea vomiting and diarrhea for the past day. She works at a [employer]. Many of the clients are sick. MD elicited complaint: other ( Nausea vomiting and diarrhea) Pertinent past history: other ( none) Onset (ago): day(s) (1) Consistency: constant Severity: moderate Pain scale (0-10): 1 Description of mucous: clear, watery and other ( loose stool which is clear and watery without blood) Able to tolerate fluids by mouth: Yes Exacerbating factors: nothing Relieving factors: nothing Context: sick contacts Associated symptoms: denies other symptoms Treatments prior to arrival: none Related Data Home Medications ?Medication ?Instructions ?Recorded ?Confirmed ?Last Taken ?Type duloxetine 30 mg capsule,delayed 90 mg PO DAILY 04/28/23 02/25/24 Unknown History release estradiol 1 mg tablet mg 02/25/24 Unknown History sertraline 50 mg tablet mg 02/25/24 Unknown History Allergies Allergy/AdvReac Type Severity Reaction Status Date / Time No Known Allergies Allergy Mild Verified 05/10/24 19:08 Review of Systems Review of Systems: All systems reviewed & are unremarkable except as noted in HPI and below Constitutional: Constitutional: Reports no additional constitutional complaints Eyes: Eyes: Reports no additional eye complaints ENT: Reports system reviewed and no additional complaints, except as documented Cardiovascular: Cardiovascular: Reports no additional cardiovascular complaints Respiratory: Respiratory: Reports no additional respiratory complaints Gastrointestinal: Gastrointestinal: Reports no additional gastrointestinal complaints Genitourinary: Genitourinary: Reports no additional female genitourinary complaints Musculoskeletal: Musculoskeletal: Reports no additional musculoskeletal complaints Integumentary/Breasts: Skin/Breast: Reports system reviewed and no additional complaints, except as docu Neurologic: Reports system reviewed and no additional complaints, except as documented Psychiatric: Psychiatric: Reports no additional psychiatric complaints Endocrine: Endocrine: Reports no additional endocrine complaints Hematologic/Lymphatic: Hematologic/Lymphatic: Reports no additional hematologic/lymphatic complaints Allergic/Immunologic: Allergic/Immunologic: Reports no additional allergic/immunologic complaints PMFSH Past Medical History Medical History Patient denies medical problems Social History Social History Smoking status: Never smoker Second hand tobacco smoke exposure: No Alcohol intake: current Alcohol use details: very rarely Substance use: current Substance use type: marijuana Other substance usage details: daily use Living arrangements: with family Gender identity (if verbalized by the patient): Female Spiritual care concerns: No Exam Const: General: healthy appearing Nutritional Appearance: well nourished Orientation/consciousness: patient oriented x3 HENMT: Head: normal to inspection Ears: external ears normal Face/Nose/Sinus: Normal external nose present Eyes: Conjunctivae: conjunctivae normal Pupils: Equal, round and reactive pupils present EOM: EOMs intact bilaterally Neck: Neck: normal visual inspection Chest: Chest palpation & inspection: normal inspection of the chest Resp: Effort & Inspection: normal respiratory effort and not labored Auscultation: clear to auscultation bilaterally and no crackles Cardio: Rate: regular rate Rhythm: regular rhythm Heart sounds: no murmurs GI: Inspection: non-distended GI Palp: Yes Soft to palpation, Yes Tenderness to palpation present (GI) ( epigastrium), No Guarding due to palpation present (GI), No Rigid due to palpation, No Hernia present, No Palpable mass present and No Rebound tenderness present Auscultation: normal bowel sounds : General: Yes bladder normal to palpation Back/Spine/Pelvis: Back: no CVA tenderness Skin: General skin exam: normal color Rashes: no rashes Wounds: no wounds Neuro: General: patient oriented x3 Cranial nerves: Yes Nystagmus not present Speech: normal speech Extrem: General: normal to inspection Psych: Mental Status: mental status grossly normal Affect: normal affect Course Vital Signs Vital signs: Vital Signs Temperature 37.2 C 05/10/24 18:56 Pulse Rate 74 05/10/24 18:56 Respiratory Rate 18 05/10/24 18:56 Blood Pressure 107/70 05/10/24 18:56 Pulse Oximetry 99 05/10/24 18:56 Oxygen Delivery Room Air 05/10/24 18:56 Temperature 37.2 C 05/10/24 18:56 Pulse Rate 74 05/10/24 18:56 Respiratory Rate 18 05/10/24 18:56 Blood Pressure 107/70 05/10/24 18:56 Pulse Oximetry 100 05/10/24 19:11 Oxygen Delivery Room Air 05/10/24 19:11 MDM - URI/Sore Throat MDM Narrative Medical decision making narrative: patient is a 38-year-old female with nausea vomiting and diarrhea correlated with gastroenteritis. Zofran p.r.n.. off work p.r.n. Lab Data Attestation: I reviewed the patient's lab results. Labs: Lab Results 05/10/24 05/10/24 Range/Units 18:56 20:02 Urine Test Negative Influenza A (RT-PCR) Negative (Negative) Influenza B (RT-PCR) Negative (Negative) RSV (RT-PCR) Negative (Negative) SARS-CoV-2 RNA (RT-PCR) Negative (Negative) I did not realize the patient had hysterectomy which was noted after test completed Discharge Plan Discharge Clinical Impression: Gastroenteritis Patient Disposition: Home, Self-Care Condition: Stable Instructions: Gastroenteritis (ED) Patient Language: Japanese Prescriptions: New ondansetron 4 mg tablet,disintegrating 4 mg PO Q6H PRN (Reason: nausea and vomiting) Qty: 20 0RF No Action estradiol 1 mg tablet sertraline 50 mg tablet ciprofloxacin HCl 250 mg tablet 250 mg PO Q12H 7 Days Qty: 14 0RF duloxetine 30 mg capsule,delayed release(DR/EC) 90 mg PO DAILY Patient Comments: patient takes in the AM Follow-up/Referrals: UNKNOWN,DOCTOR [Primary Care Provider] - Stand Alone Forms: Work/School Release IP Time of Disposition: 20:36
--- NOTE | 2024-05-10 19:01 | PC.NURSE ---
covid culture sent to lab
[2024-05-10 19:11] VITALS: O2SAT 100
[2024-05-10 19:41] LABS: SARS-CoV-2 RNA PCR Negative (Negative)
[2024-05-10 19:47] LABS: Influenza A QL RT-PCR Negative (Negative); Influenza B QL RT-PCR Negative (Negative); RSV RNA, RT-PCR Negative (Negative)
[2024-05-10 20:22] LABS: Pregnancy On Board Control Positive; Urine Pregnancy Test Negative
[2024-05-10] MEDS: ONDANSETRON HCL ODT 4 MG TABLET PO (20:55)
[2024-05-10 21:24] VITALS: BP 105/72; PULSE 75; RESP 17; TEMP 37.1; O2SAT 100
== END 2024-05-10 21:20 | disposition home or self-care (01) ==
PROVIDERS: Emergency Provider Emergency Medicine
DX: K52.9 Noninfective gastroenteritis and colitis, unspecified (principal); Z20.822 Contact with and (suspected) exposure to COVID-19
CPT/HCPCS: 81025; 87637; 99283; A9270